=== PATIENT | female | born 1950 | race Caucasian/White ===

== ENCOUNTER → 2017-01-21 | Outpatient (CLI) | payer MEDICARE, OTHER ==
[~2017-01-21] MED LIST: ASPI-496 PO; CHOL200040 PO; LISI-167 PO; LISI5TAB7 PO; MULT-658 PO
== END | disposition home or self-care (01) ==
LOC: CVU 07:28
PROVIDERS: ATTEND Surgery
DX: I65.21 Occlusion and stenosis of right carotid artery (principal); I10 Essential (primary) hypertension
CPT/HCPCS: 93880

== ENCOUNTER 2017-05-20 18:48 | Emergency (ER) | payer MEDICARE, OTHER ==
[~2017-05-20] VITALS: Ht 160 cm; Wt 69.6 kg
[2017-05-20 19:13] VITALS: BP 146/82
[2017-05-20 19:46] LABS: ALANINE AMINOTRANSFERASE 26 U/L (12-78); ALBUMIN 4.2 g/dL (3.4-5.0); ANION GAP 5 mmol/L (5-15); CHLORIDE 106 mmol/L (98-107); CREATININE 1.13 mg/dL (0.55-1.02)
[2017-05-20 19:48] LABS: ALKALINE PHOSPHATASE 62 U/L (45-117); BILIRUBIN,TOTAL 0.8 mg/dL (0.2-1.0); TOTAL PROTEIN 8.1 g/dL (6.4-8.2)
[2017-05-20 20:17] LABS: BASOPHILS # (AUTO) 0.08 x10^3/uL (0-0.1); BASOPHILS % (AUTO) 1 % (0-1); EOSINOPHILS # (AUTO) 0.15 x10^3/uL (0-0.4); EOSINOPHILS % (AUTO) 1 % (1-7); LYMPHOCYTES # (AUTO) 3.37 x10^3/uL (1-3.4); LYMPHOCYTES % (AUTO) 32 % (22-44); MD NO; MEAN CORPUSCULAR HEMOGLOBIN 31.1 pg (27.0-34.8); MEAN CORPUSCULAR HGB CONC 34.6 g/dL (32.4-35.8); MONOCYTES # (AUTO) 1.05 x10^3/uL (0.2-0.8); MONOCYTES % (AUTO) 10 % (2-9); NEUTROPHILS # (AUTO) 5.94 x10^3/uL (1.8-6.8); NEUTROPHILS % (AUTO) 56 % (42-75); PLATELET COUNT 271 x10^3/uL (130-400); RED CELL DISTRIBUTION WIDTH 12.8 % (9.6-15.2)
[2017-05-20 20:39] LABS: HCT (SEDRATE) 41.9 % (34.6-47.8)
[2017-05-20] MEDS ORDERED: CEPHALEXIN 500 MG CAPSULE ONE (20:55)
[2017-05-20] MEDS ORDERED: CEPHALEXIN 500 MG CAPSULE PO ONE (21:00)
== END 2017-05-20 21:15 | disposition home or self-care (01) ==
LOC: ED 20:50
DX: M79.645 Pain in left finger(s) (principal); L03.011 Cellulitis of right finger; I10 Essential (primary) hypertension; M19.90 Unspecified osteoarthritis, unspecified site; Z87.891 Personal history of nicotine dependence
CPT/HCPCS: 29130; 36415; 80053; 85025; 85651; 99285

== ENCOUNTER → 2017-09-21 | Outpatient (CLI) | payer MEDICARE, OTHER ==
[~2017-09-21] MED LIST changes: +REGADENOSON 0.4 MG/5 ML SYRINGE ONE
== END | disposition home or self-care (01) ==
LOC: CFH 07:35
PROVIDERS: ATTEND Internal Medicine Cardiovascular Disease
DX: I25.10 Atherosclerotic heart disease of native coronary artery without angina pectoris (principal); I07.1 Rheumatic tricuspid insufficiency; Z95.2 Presence of prosthetic heart valve
CPT/HCPCS: 78452; 93017; 93306; A9502; J2785

== ENCOUNTER → 2018-02-17 | Outpatient (CLI) | payer MEDICARE, OTHER ==
[~2018-02-17] MED LIST changes: -REGADENOSON 0.4 MG/5 ML SYRINGE ONE
== END | disposition home or self-care (01) ==
LOC: CVU 09:51
PROVIDERS: ATTEND Surgery
DX: I65.23 Occlusion and stenosis of bilateral carotid arteries (principal)
CPT/HCPCS: 93880

== ENCOUNTER 2018-09-26 08:30 | Outpatient (CLI) | payer MEDICARE, OTHER | END 2018-09-26 23:59 | disposition home or self-care (01) | LOC: CFH 08:30 | PROVIDERS: ATTEND Nurse Practitioner Family | DX: I07.1 Rheumatic tricuspid insufficiency (principal); I10 Essential (primary) hypertension; E78.5 Hyperlipidemia, unspecified; Z95.2 Presence of prosthetic heart valve | CPT/HCPCS: 93306 ==

== ENCOUNTER → 2019-04-05 | Outpatient (CLI) | payer MEDICARE, OTHER | END | disposition home or self-care (01) | LOC: CVU 15:29 | PROVIDERS: ATTEND Surgery | DX: I65.23 Occlusion and stenosis of bilateral carotid arteries (principal); I10 Essential (primary) hypertension; E78.5 Hyperlipidemia, unspecified; Z87.891 Personal history of nicotine dependence | CPT/HCPCS: 93880 ==

== ENCOUNTER → 2019-10-05 | Outpatient (CLI) | payer MEDICARE, OTHER ==
[2019-10-05 08:33] LABS: CALCIUM 9.2 mg/dL (8.5-10.1)
[2019-10-05 08:41] LABS: ANION GAP 6 mmol/L (5-15); CHLORIDE 111 mmol/L (98-107)
[2019-10-05 08:44] LABS: ALANINE AMINOTRANSFERASE 26 U/L (12-78); ALKALINE PHOSPHATASE 67 U/L (45-117); BILIRUBIN,TOTAL 0.9 mg/dL (0.2-1.0); CHOL/HDL RATIO 3.4; CHOLESTEROL, TOTAL 131 mg/dL (140-239); CREATININE 1.24 mg/dL (0.55-1.02); HDL CHOL % 30 % (28-40); HDL CHOLESTEROL (DIRECT) 39 mg/dL (40-60); LDL CHOLESTEROL,CALCULATED 50 mg/dL (54-169); LDL/HDL RATIO 1.3 (0.5-3.0); T4 (THYROXINE) 9.1 mcg/dL (4.8-13.9); TOTAL PROTEIN 7.7 g/dL (6.4-8.2); TRIGLYCERIDES 212 mg/dL (50-200); VLDL CHOLESTEROL 42 mg/dL (0-25)
== END | disposition home or self-care (01) ==
LOC: CVU 08:05
PROVIDERS: ATTEND Nurse Practitioner Family
DX: I34.0 Nonrheumatic mitral (valve) insufficiency (principal); E78.2 Mixed hyperlipidemia; Z95.2 Presence of prosthetic heart valve
CPT/HCPCS: 36415; 80053; 80061; 84436; 84443; 84481; 93306

== ENCOUNTER → 2020-05-08 | Outpatient (CLI) | payer MEDICARE, OTHER | END | disposition home or self-care (01) | LOC: CVU 08:31 | PROVIDERS: ATTEND Surgery | DX: I65.23 Occlusion and stenosis of bilateral carotid arteries (principal) | CPT/HCPCS: 93880 ==

== ENCOUNTER 2020-06-04 10:15 | Outpatient (CLI) | payer MEDICARE, OTHER | END 2020-06-04 23:59 | disposition home or self-care (01) | LOC: CFH 10:15 | DX: Z13.820 Encounter for screening for osteoporosis (principal); N95.9 Unspecified menopausal and perimenopausal disorder | CPT/HCPCS: 77080 ==

== ENCOUNTER 2020-08-15 13:45 | Emergency (ER) | payer MEDICARE, OTHER ==
[~2020-08-15] VITALS: Ht 160 cm; Wt 79.0 kg
--- NOTE | 2020-08-15 13:58 | NUR ---
ERMD AT BEDSIDE FOR EVALUATION.
--- NOTE | 2020-08-15 14:00 | NUR ---
PATIENT BIB EMS WITH CHIEF C/O GLF AFTER TRIPPING ON CURB. OBVIOUS LEFT WRIST AND ANKLE DEFORMITY PER EMS. 20 GAUGE IV STARTED LEFT HAND AND 50 MCG FENTANYL AND 4 MG ZOFRAN GIVEN EN ROUTE. VSS EN ROUTE, NO OTHER INTERVENTIONS. DEFORMITY NOTED TO LEFT WRIST, LEFT ANKLE IS SWOLLEN, VSS, FAMILY AT BEDSIDE, SIDE RAILS UP X2, CALL LIGHT WITHIN REACH.
[2020-08-15] MEDS ORDERED: HYDROmorphone 1 MG/ML, 1ML INJ ONE ×3 (14:12→15:55)
--- NOTE | 2020-08-15 14:23 | NUR ---
PATIENT MEDICATED PER [facility], ICE PACK APPLIED TO LEFT ANKLE, PATIENT UNABLE TO TOLERATE ICE PACK TO LEFT WRIST.
[2020-08-15 14:29] LABS: BASOPHILS % (AUTO) 1 % (0-1); EOSINOPHILS % (AUTO) 2 % (1-7); LYMPHOCYTES % (AUTO) 24 % (22-44); MEAN CORPUSCULAR HEMOGLOBIN 30.9 pg (27.0-34.8); MEAN CORPUSCULAR HGB CONC 34.8 g/dL (32.4-35.8); MEAN PLATELET VOLUME 8.9 fL (7.4-10.4); MONOCYTES % (AUTO) 8 % (2-9); NEUTROPHILS % (AUTO) 65 % (42-75); PLATELET COUNT 227 x10^3/uL (130-400); RED BLOOD COUNT 3.97 x10^6/uL (3.82-5.3); RED CELL DISTRIBUTION WIDTH 13.8 % (9.6-15.2)
[2020-08-15] MEDS ORDERED: HYDROmorphone 1 MG/ML, 1ML INJ IV ONE ×3 (14:30→15:30)
[2020-08-15] MEDS ORDERED: SODIUM CHLORIDE FLUSH 10ML SYR IVF ONE (14:30)
[2020-08-15 14:41] LABS: INTERNATIONAL NORMALIZED RATIO 1.03 (0.93-1.1)
[2020-08-15 14:42] LABS: ALBUMIN 3.3 g/dL (3.4-5.0); ANION GAP 8 mmol/L (5-15); CALCIUM 8.6 mg/dL (8.5-10.1); CHLORIDE 112 mmol/L (98-107); CREATININE 1.15 mg/dL (0.55-1.02)
--- NOTE | 2020-08-15 15:09 | NUR ---
PATIENT MEDICATED WITH SECOND DOSE OF DILAUDID, CONNECTED TO MONITOR, VSS, FAMILY AT BEDSIDE, SIDE RAILS UP X2, CALL LIGHT WITHIN REACH. WAITING FOR XRAY RESULTS.
--- NOTE | 2020-08-15 16:03 | NUR ---
PATIENT ASSISTED WITH BEDPAN, MEDICATED PER [facility]. CONNECTED TO MONITOR, VSS, FAMILY AT BEDSIDE, SIDE RAILS UP X2, CALL LIGHT WITHIN REACH.
[2020-08-15] MEDS ORDERED: PROPOFOL 10 MG/ML, 20ML ONE (16:49)
--- NOTE | 2020-08-15 17:05 | NUR ---
REPORT TO LALITA ABARCA FOR PROCEDURAL SEDATION LEFT WRIST REDUCTION.
[2020-08-15] MEDS ORDERED: PROPOFOL 10 MG/ML, 20ML IVPush ONE (17:30)
[2020-08-15] MEDS ORDERED: KETAMINE 100 MG/ML, 5ML IV ONE (17:30)
--- NOTE | 2020-08-15 18:14 | NUR ---
LATE ENTRY FOR 1705 - THIS RN AT BEDSIDE FOR PROCEDURAL SEDATION AND REDUCTION OF L WRIST. 1720 - PT TOLERATED PROCEDURE WELL. SEE PAPER DOCUMENTATION FOR PROCEDURAL SEDATION MEDICATION/SEDATION SCORE/VS. 1810 - ORDER SENT TO [facility] WITH ORDER AND PT CONSENT. OK FAX RECEIPT CONFIRMED. REPORT TO LALITA SHARP. PT AWAKE AND ORIENTED. STATES THAT SHE CONTINUES TO EXPERIENCE DECREASED SENSATION IN LEFT WRIST/HAND. CMS INTACT. <2 SECOND CAP REFILL IN LUE.
--- NOTE | 2020-08-15 18:25 | NUR ---
ERMD AT BEDSIDE TO DISCUSS POC.
--- NOTE | 2020-08-15 18:52 | NUR ---
REPORT FROM ARON CELIS
[2020-08-15] MEDS ORDERED: ACETAMINOPHEN 500 MG TABLET PO ONE (19:30)
[2020-08-15] MEDS ORDERED: ACETAMINOPHEN 500 MG TABLET ONE (19:35)
--- NOTE | 2020-08-15 20:53 | NUR ---
TP RN: contacted [facility] regarding wheelchair. Staff states, "I just called and left a voicemail for them so they should call us back with an update."
--- NOTE | 2020-08-15 20:59 | NUR ---
TP RN: Spoke with Joan from [facility] regarding wheelchair. They state that because patient has medicare, it has to be processed by the medicare processing dept which closed at 1700. Informed primary RN.
--- NOTE | 2020-08-15 20:59 | NUR ---
Pt and family made aware of multiple attempts to obtain wheelchair from DME, when DME finally called back they said a wheelchair would not be made available until morning. Pt and family said they would call the company themselves in the AM to discuss obtaining a wheelchair
[2020-08-15 21:12] VITALS: BP 139/80
== END 2020-08-15 21:15 | disposition home or self-care (01) ==
LOC: ED 20:03
DX: S52.572A Other intraarticular fracture of lower end of left radius, initial encounter for closed fracture (principal); S82.842A Displaced bimalleolar fracture of left lower leg, initial encounter for closed fracture; S52.602A Unspecified fracture of lower end of left ulna, initial encounter for closed fracture; I10 Essential (primary) hypertension; W01.0XXA Fall on same level from slipping, tripping and stumbling without subsequent striking against object, initial encounter; Y93.89 Activity, other specified; Y92.410 Unspecified street and highway as the place of occurrence of the external cause; Y99.8 Other external cause status
CPT/HCPCS: 25605; 29515; 36415; 73070; 73100; 73110; 73610; 80048; 82040; 85025; 85610; 85730; 96374; 96376; 99285; J1170

== ENCOUNTER → 2020-10-10 | Outpatient (CLI) | payer MEDICARE, OTHER | END | disposition home or self-care (01) | LOC: CFH 11:02 | PROVIDERS: ATTEND Internal Medicine Cardiovascular Disease | DX: I11.9 Hypertensive heart disease without heart failure (principal); I35.0 Nonrheumatic aortic (valve) stenosis | CPT/HCPCS: 93306; 93356 ==

== ENCOUNTER → 2020-10-11 | Outpatient (CLI) | payer MEDICARE, OTHER ==
[2020-10-11 10:12] LABS: BASOPHILS % (AUTO) 1 % (0-1); EOSINOPHILS % (AUTO) 3 % (1-7); LYMPHOCYTES % (AUTO) 30 % (22-44); MEAN CORPUSCULAR HEMOGLOBIN 30.2 pg (27.0-34.8); MEAN CORPUSCULAR HGB CONC 34.4 g/dL (32.4-35.8); MEAN PLATELET VOLUME 8.5 fL (7.4-10.4); MONOCYTES % (AUTO) 8 % (2-9); NEUTROPHILS % (AUTO) 57 % (42-75); PLATELET COUNT 272 x10^3/uL (130-400)
[2020-10-11 10:29] LABS: ALANINE AMINOTRANSFERASE 21 U/L (12-78); ALKALINE PHOSPHATASE 76 U/L (45-117); ANION GAP 5 mmol/L (5-15); BILIRUBIN,TOTAL 0.9 mg/dL (0.2-1.0); CALCIUM 9.5 mg/dL (8.5-10.1); CHLORIDE 110 mmol/L (98-107); CREATININE 1.07 mg/dL (0.55-1.02)
[2020-10-11 10:30] LABS: ALBUMIN 3.8 g/dL (3.4-5.0); CHOL/HDL RATIO 4.2; CHOLESTEROL, TOTAL 138 mg/dL (140-239); HDL CHOL % 24 % (28-40); HDL CHOLESTEROL (DIRECT) 33 mg/dL (40-60); LDL CHOLESTEROL,CALCULATED 44 mg/dL (54-169); LDL/HDL RATIO 1.3 (0.5-3.0); TOTAL PROTEIN 7.7 g/dL (6.4-8.2); TRIGLYCERIDES 305 mg/dL (50-200); VLDL CHOLESTEROL 61 mg/dL (0-25)
== END | disposition home or self-care (01) ==
LOC: LAB 09:47
PROVIDERS: ATTEND Internal Medicine Cardiovascular Disease
DX: I12.9 Hypertensive chronic kidney disease with stage 1 through stage 4 chronic kidney disease, or unspecified chronic kidney disease (principal); N18.2 Chronic kidney disease, stage 2 (mild); E78.2 Mixed hyperlipidemia; R94.6 Abnormal results of thyroid function studies; I35.0 Nonrheumatic aortic (valve) stenosis; I65.22 Occlusion and stenosis of left carotid artery; I77.810 Thoracic aortic ectasia; Z95.2 Presence of prosthetic heart valve
CPT/HCPCS: 36415; 80053; 80061; 84439; 84443; 85025; 86376